=== PATIENT | female | born 1955 | race Two or more races ===

== ENCOUNTER 2025-01-15 17:04 | Emergency (ER) | payer OTHER ==
[~2025-01-15] VITALS: Ht 154.9 cm; Wt 68.0 kg
[2025-01-15] MEDS ORDERED: VASOTEC20 M1 PO (17:24)
[2025-01-15] MEDS ORDERED: VITAMIN B-125000 MC1 PO (17:25)
[2025-01-15] MEDS ORDERED: BINOSTO70 MG PO (17:25)
[2025-01-15] MEDS ORDERED: LASIX20 MG PO (17:25)
[2025-01-15] MEDS ORDERED: WARFARIN SODIUM4 MG PO (17:26)
[2025-01-15] MEDS ORDERED: JANTOVEN2 MG PO (17:26)
[2025-01-15] MEDS ORDERED: ATORVASTATIN CA20 MG PO (17:26)
[2025-01-15] MEDS ORDERED: NIZORAL SHAMPO120 ML TP (17:27)
[2025-01-15] MEDS ORDERED: TOLTERODINE TART4 MG PO (17:27)
[2025-01-15] MEDS ORDERED: MELATONIN10 MG PO (17:27)
[2025-01-15 19:42] LABS: BASO % 0.5 % (0.1-1.2); EOS # 0.09 (0.04-0.54); EOS % 0.7 % (0.7-7.0); LYMPH # 3.26 (1.18-3.74); LYMPH % 27.1 % (19.3-53.1); MEAN PLATELET VOLUME 10.90 fl (9.4-12.4); MONO # 1.26 (0.24-0.82); MONO % 10.5 % (4.7-12.5); NEUT # 7.21 (1.56-6.13); NEUT % 60.0 % (34.0-71.1); RED CELL DISTRIBUTION WIDTH 15.0 % (11.6-14.4)
[2025-01-15 19:59] LABS: INR 1.38
[2025-01-15 20:04] LABS: ALT/SGPT 26.0 U/L (12-78); AST/SGOT 17.0 U/L (15-37); BILIRUBIN TOTAL 0.31 mg/dL (0.3-1.2); BUN CREA RATIO 28.0 (7.0-25.0); CREATININE SERUM 0.75 mg/dL (0.55-1.02); GFR 76.39; GLOBULINA 3.5 G/DL (2.4-3.5); GLUCOSE FASTING 88.0 mg/dL (65-100); OSMOLALITY SERUM 287.0 MOSM/KG (275-295)
== END 2025-01-15 21:55 | disposition home or self-care (01) ==
LOC: ER 17:04
DX: R42 Dizziness and giddiness (principal); Z86.73 Personal history of transient ischemic attack (TIA), and cerebral infarction without residual deficits; I25.2 Old myocardial infarction; Z88.0 Allergy status to penicillin; I10 Essential (primary) hypertension